=== PATIENT | female | born 1955 | race Caucasian/White ===

== ENCOUNTER → 2016-08-02 | Outpatient (CLI) | payer BC ==
[~2016-08-02] MED LIST: AMBIEN10 MG PO; COZAAR 25MG25 MG/TAB PO; COZAAR 50MG50 MG/TAB PO; COZAAR50 MG PO; DIOVAN80 M1 PO; LEXAPRO20 MG PO; LIPITOR20 MG PO; MAXALT10 MG PO; OMEPRAZOLE40 MG PO; PRAVACHOL10 MG PO; PRAVASTATIN40 MG PO; PREDNISONE10 MG PO; VITAMIN D5000 IU PO
== END ==
LOC: MHCPAIN 08:52
DX: G89.29 Other chronic pain (principal); M50.90 Cervical disc disorder, unspecified, unspecified cervical region
CPT/HCPCS: G0463

== ENCOUNTER → 2016-08-10 | Outpatient (CLI) | payer BC | LOC: MHCPAIN 11:46 | DX: M53.3 Sacrococcygeal disorders, not elsewhere classified (principal) ==

== ENCOUNTER → 2016-08-15 | Outpatient (CLI) | payer BC | LOC: MHCPAIN 11:00 | DX: G89.29 Other chronic pain (principal); M50.90 Cervical disc disorder, unspecified, unspecified cervical region; M54.12 Radiculopathy, cervical region; Z87.891 Personal history of nicotine dependence | CPT/HCPCS: G0463 ==

== ENCOUNTER → 2016-08-17 | Outpatient (CLI) | payer BC | LOC: MHCPAIN 08:44 | DX: M50.323 Other cervical disc degeneration at C6-C7 level (principal) ==

== ENCOUNTER → 2016-08-23 | Outpatient (CLI) | payer BC | LOC: MHCPAIN 12:27 | DX: G89.29 Other chronic pain (principal); M50.10 Cervical disc disorder with radiculopathy, unspecified cervical region; M79.2 Neuralgia and neuritis, unspecified; Z87.891 Personal history of nicotine dependence | CPT/HCPCS: G0463 ==

== ENCOUNTER → 2016-08-24 | Outpatient (CLI) | payer BC | LOC: MHCPAIN 07:46 | DX: M50.30 Other cervical disc degeneration, unspecified cervical region (principal) | CPT/HCPCS: J1100 ==

== ENCOUNTER → 2016-09-25 | Outpatient (CLI) | payer BC | LOC: MHCPAIN 11:31 | DX: G89.29 Other chronic pain (principal); M25.511 Pain in right shoulder; M79.1 Myalgia; M50.90 Cervical disc disorder, unspecified, unspecified cervical region | CPT/HCPCS: G0463 ==

== ENCOUNTER → 2016-11-13 | Outpatient (CLI) | payer BC | LOC: MHCPAIN 12:32 | DX: M79.1 Myalgia (principal) | CPT/HCPCS: J1040 ==

== ENCOUNTER 2016-12-21 16:15 | Outpatient (RCR) | payer BC | END 2017-01-04 13:57 | LOC: WSPT 16:15 | DX: M47.812 Spondylosis without myelopathy or radiculopathy, cervical region (principal); M79.1 Myalgia; M50.90 Cervical disc disorder, unspecified, unspecified cervical region; G89.29 Other chronic pain; M25.511 Pain in right shoulder; Z96.611 Presence of right artificial shoulder joint ==

== ENCOUNTER → 2018-06-27 | Outpatient (CLI) | payer BC | LOC: COL.VAS 12:44 | DX: I82.612 Acute embolism and thrombosis of superficial veins of left upper extremity (principal) ==

== ENCOUNTER → 2019-02-04 | Outpatient (CLI) | payer BC | LOC: COL.RAD 14:54 | DX: M25.512 Pain in left shoulder (principal); Z98.890 Other specified postprocedural states ==

== ENCOUNTER → 2021-01-20 | Outpatient (CLI) | payer BC | LOC: COL.RAD 13:54 | DX: M25.511 Pain in right shoulder (principal); Z96.611 Presence of right artificial shoulder joint | CPT/HCPCS: Q9967 ==

== ENCOUNTER 2022-01-06 16:13 | Inpatient (IN) | payer BC, MEDICARE ==
[~2022-01-06] VITALS: Ht 165.1 cm; Wt 90.0 kg
[2022-01-12] VITALS (11 sets, daily range): BP systolic 118–139; BP diastolic 66–80; PULSE 59–76; TEMP 97.3–98.4
[2022-01-12 09:27] LABS: BASO # 0.1 K/mm3 (0.0-0.2); BASO % 1.4 % (0.0-2.0); EOS # 0.1 K/mm3 (0.0-0.7); EOS % 1.4 % (0.0-4.0); GRAN # 4.1 K/mm3 (1.4-6.5); GRAN % 62.9 % (42.2-75.2); HEMATOCRIT 40.5 % (37.0-47.0); HEMOGLOBIN 12.8 g/dl (12.5-16.0); LYMPH # 1.8 K/mm3 (1.2-3.4); LYMPH % 27.8 % (20.0-51.0); MEAN CELL VOLUME 94 fl (80.0-100.0); MEAN CORPUSCULAR HEMOGLOBIN 30 pg (27-31); MEAN CORPUSCULAR HGB CONC 32 g/dl (33.0-37.0); MEAN PLATELET VOLUME 10.2 fl (7.4-10.4); MONO # 0.4 K/mm3 (0.1-0.6); MONO % 6.3 % (1.7-9.3); PLATELET COUNT 290 K/mm3 (130-400); RED BLOOD COUNT 4.33 M/mm3 (4.10-5.30); REDCELL DISTRIBUTION WIDTH-CV 13.5 % (11.5-14.5)
[2022-01-12 09:46] LABS: CALCIUM 9.2 mg/dL (8.4-10.2); CREATININE, serum 1.58 mg/dL (0.57-1.11); POTASSIUM 4.2 mmol/L (3.5-4.5)
[2022-01-12] MEDS ORDERED: COZAAR100 MG PO (10:33)
[2022-01-12] MEDS ORDERED: AMBIEN 5MG TABLE5 MG PO (10:35)
[2022-01-12] MEDS ORDERED: LIPITOR 10MG10 MG PO (10:36)
[2022-01-12] MEDS ORDERED: CYMBALTA 20MG20 MG PO (10:41)
[2022-01-12] MEDS ORDERED: NORVASC2.5 MG PO (10:42)
[2022-01-12] MEDS ORDERED: LASIX 20MG TABL20 MG PO (10:44)
--- NOTE | 2022-01-12 14:00 | NUR ---
PT ARRIVED FROM PACU. PT IS LETHARGIC BUT AROUSES TO VOICE. PT ORIENTED X4. VSS. DRG C/D/I. IVF RUNNING. CALL LIGHT GIVEN TO PT AND INSTRUCTED TO CALLL WTIH ALL NEEDS. FAMILY BEDSIDE.
[2022-01-13 03:24] VITALS: BP 126/68; PULSE 65; TEMP 98.8
[2022-01-13 06:11] LABS: HEMATOCRIT 37.3 % (37.0-47.0); HEMOGLOBIN 11.7 g/dl (12.5-16.0)
[2022-01-13 06:31] LABS: CALCIUM 8.6 mg/dL (8.4-10.2); CREATININE, serum 1.7 mg/dL (0.57-1.11); POTASSIUM 4.8 mmol/L (3.5-4.5)
[2022-01-13 07:42] VITALS: BP 124/64; PULSE 55; TEMP 97.7
--- NOTE | 2022-01-13 08:15 | NUR ---
Pt. sitting up in bed. Pt. is A&OX3, assessment complete. IV to lt. forearm patent. INT'd at this time. Clark catheter to DD, discontinued at this time. Pt. tolerated well. Pt. assisted to the chair. Pt. steady but reports a bit dizzy at first but did resolve. Pt. reports pain to abd at a 4 on pain scale, gave Tylenol per orders. Pt. denies further needs, call light within reach.
[2022-01-13 12:47] VITALS: BP 122/77; PULSE 53; TEMP 98.4
--- NOTE | 2022-01-13 14:02 | NUR ---
[employer]in[employer] met with patient to discuss discharge planning. Patient lives alone in [place], [place] and sees Dr. Santillan in [place] for primary care. Patient obtains medications from [facility] in with no difficulties. Patient is employed by [id number] and is independent with ADLS. Patient does not use any DME. Patient has [id number] on her chart which designates either her son Dago (ph#[phone]), son Jose Antonio, or sister Depeika (ph#[phone]). Patient plans to return home at time of discharge. Discharge Plan: Home
[2022-01-13 16:22] VITALS: BP 120/64; PULSE 66; TEMP 98.4
--- NOTE | 2022-01-13 20:03 | NUR ---
BEGINNING OF SHIFT: PATIENT RESTING QUIETLY IN BED. FAMILY AT BEDSIDE. PATIENT REPORTS MILD TENDERNESS TO ABDOMEN. PATIENT DRESSINGS CLEAN DRY AND INTACT. DISCUSSED SCHEDULED HS MEDICATIONS AND PATIENT IN AGREEMENT.
[2022-01-13 20:38] VITALS: BP 144/65; PULSE 52; TEMP 97.6
[2022-01-14 00:54] VITALS: BP 123/61; PULSE 60; TEMP 98.7
[2022-01-14 04:41] VITALS: BP 125/69; PULSE 59; TEMP 98
--- NOTE | 2022-01-14 06:03 | NUR ---
END OF SHIFT: PATIENT RESTED QUIETLY THIS SHIFT AND HAD NO COMPLAINTS OF PAIN. PATIENT RECEIVED NO PRN MEDICATIONS. FAMILY BROUGHT PATIENT FOOD AND PATIENT TOLERATED WELL.
[2022-01-14 06:23] LABS: HEMOGLOBIN 11.6 g/dl (12.5-16.0)
[2022-01-14 06:24] LABS: HEMATOCRIT 36.9 % (37.0-47.0)
[2022-01-14 06:39] LABS: CALCIUM 8.3 mg/dL (8.4-10.2); CREATININE, serum 1.78 mg/dL (0.57-1.11); POTASSIUM 4.4 mmol/L (3.5-4.5)
[2022-01-14 08:05] VITALS: BP 145/85; PULSE 50; TEMP 98.1
--- NOTE | 2022-01-14 11:08 | NUR ---
1115 - PATIENT DISCHARGE AND EDUCATION PROVIDED. ALL QUESTIONS ANSWERED. IV REMOVED PER PROTOCOL. PATIENT SAFELY TRANSPORTED TO ER ENTRANCE BY STAFF AND FAMILY FOR DISCHARGE.
== END 2022-01-14 11:20 | disposition home or self-care (01) | DRG 330 ==
LOC: INPTSU 01-12 08:26 → SURG 01-12 08:26
PROVIDERS: Registered Nurse; ADMIT Surgery
PROC: 0DBK4ZZ Excision of Ascending Colon, Percutaneous Endoscopic Approach (ICD-10-PCS; principal; 2022-01-12 10:30)
DX: C18.2 Malignant neoplasm of ascending colon (principal); C18.3 Malignant neoplasm of hepatic flexure; M17.10 Unilateral primary osteoarthritis, unspecified knee; E78.5 Hyperlipidemia, unspecified; G89.29 Other chronic pain; F32.A Depression, unspecified; F41.9 Anxiety disorder, unspecified; G43.909 Migraine, unspecified, not intractable, without status migrainosus; I12.9 Hypertensive chronic kidney disease with stage 1 through stage 4 chronic kidney disease, or unspecified chronic kidney disease; E11.22 Type 2 diabetes mellitus with diabetic chronic kidney disease; N18.9 Chronic kidney disease, unspecified; Z88.6 Allergy status to analgesic agent; Z88.1 Allergy status to other antibiotic agents; Z88.0 Allergy status to penicillin; Z88.8 Allergy status to other drugs, medicaments and biological substances; Z90.710 Acquired absence of both cervix and uterus
CPT/HCPCS: A4314; A9284; J1100; J1650; J2250; J2270; J2405; J2550; J2704; J2765; J7030; J7120